=== PATIENT | female | born 1990 | race Two or more races ===

== ENCOUNTER 2018-01-27 19:13 | Emergency (ER) | payer MEDICAID ==
[~2018-01-27] VITALS: Ht 160 cm; Wt 77.1 kg
[2018-01-27 20:15] LABS: Basophils # (auto) 0 uL; Eosinophils # (auto) 0.1 uL; Mean Corpuscular Hemoglobin 26.3 pg (28.0-32.0); Monocytes # (auto) 0.4 uL; Neutrophils # (auto) 3.5 uL; Platelet Count (auto) 310 10^3/uL (140-450); White Blood Cell 6.4 10^3/uL (4.4-10.8)
[2018-01-27 20:17] LABS: Basophils % (auto) 0.4 % (0.0-2.0); Hematocrit 38.1 % (36.0-46.0); Lymphocytes # (auto) 2.4 uL; Lymphocytes % (auto) 37.2 % (10.0-50.0); Mean Corpuscular Hgb Conc. 31.6 g/dL (32.0-36.0); Mean Corpuscular Volume 83.3 fL (80.0-100.0); Monocytes % (auto) 6.9 % (0.0-12.0); Neutrophils % (auto) 54.5 % (37.0-80.0); Red Blood Cells 4.57 10^6/uL (4.0-5.20)
[2018-01-27 20:31] LABS: Calcium 9.3 mg/dL (8.5-10.1); Potassium 3.7 mmol/L (3.5-5.1)
[2018-01-27 20:35] LABS: Bilirubin, Total 0.2 mg/dL (0.2-1.0); Total Protein 7.9 g/dL (6.4-8.2)
[2018-01-27 20:39] LABS: Urine Bacteria NONE SEEN /hpf (None Seen); Urine Blood Negative /uL (Negative); Urine WBC <1 /hpf (0 - 5)
[2018-01-28 02:09] VITALS: BP 120/60
== END 2018-01-28 03:09 | disposition home or self-care (01) ==
LOC: ER 19:13
DX: R42 Dizziness and giddiness (principal); R53.1 Weakness; D64.9 Anemia, unspecified
CPT/HCPCS: 36415; 80053; 81001; 82962; 85025; 93005